=== PATIENT | male | born 1990 | race Caucasian/White ===

== ENCOUNTER 2017-02-02 14:46 | Emergency (ER) | payer SELFPAY ==
[~2017-02-02] VITALS: Ht 167.6 cm; Wt 73.0 kg
[2017-02-02] MEDS ORDERED: MORPHINE SULFATE 4 MG/ML CPJ (NOT FOR IM USE) IV ONE (23:45)
[2017-02-02] MEDS ORDERED: PROPOFOL 200MG/20ML VIAL IV ONE (23:45)
[2017-02-02] MEDS ORDERED: KETAMINE HCL 50 MG/ML 10ML IV ONE (23:45)
[2017-02-03 01:22] VITALS: BP 152/94
== END 2017-02-03 02:03 | disposition home or self-care (01) ==
LOC: ER 17:59
DX: S52.251A Displaced comminuted fracture of shaft of ulna, right arm, initial encounter for closed fracture (principal); S53.014A Anterior dislocation of right radial head, initial encounter; S09.8XXA Other specified injuries of head, initial encounter; Y00.XXXA Assault by blunt object, initial encounter; Y93.89 Activity, other specified; Y92.018 Other place in single-family (private) house as the place of occurrence of the external cause
CPT/HCPCS: 24600; 70450; 70486; 73070; 73090; 73130; 96374; 99152; 99285; J2270; J3490; J7030; Z7610; A4565; J2704